=== PATIENT | male | born 1945 | race Caucasian/White ===

== ENCOUNTER 2017-08-17 06:24 | Day surgery (SDC) | payer MEDICARE, MEDICAID ==
[~2017-08-17] VITALS: Ht 180.3 cm; Wt 84.1 kg
[~2017-08-17 06:24] MED LIST: ASPI-1182 PO; ATOR20TA86 PO; DULA0.75 SQ; GLIP10 PO; INSLAN SQ; LISI-661 PO; METF850T2 PO
[2017-08-17] MEDS ORDERED: ALBUTEROL SULFATE 2.5 MG/0.5 ML NEB SOLUTION NEB ONE (06:25)
[2017-08-17] MEDS ORDERED: LIDOCAINE HCL 4% 50 ML SOLUTION TP ONE (06:25)
[2017-08-17] MEDS ORDERED: LIDOCAINE HCL 2% 5 ML JELLY TP ONE (06:25)
[2017-08-17] MEDS ORDERED: BENZOCAINE 20% 50 MCG/SPRAY 57 GM TP ONE (06:25)
[2017-08-17] MEDS ORDERED: SODIUM CHLORIDE 0.9% 1,000 ML IV ONE ×2 (06:37→07:00)
[2017-08-17 07:08] LABS: GLUCOMETER DEV NAME(LOC) SDS 5; GLUCOSE,POINT OF CARE 112 MG/DL (70-110)
[2017-08-17] MEDS ORDERED: INSU100V SQ (07:11)
[2017-08-17] MEDS ORDERED: MIDAZOLAM HCL 2 MG/2 ML VIAL ONE (07:32)
[2017-08-17] MEDS ORDERED: FentaNYL CITRATE-PF 100 MCG/2 ML VIAL ONE (07:33)
[2017-08-17] MEDS ORDERED: MethylPREDNISolone SOD SUCC 125 MG/2 ML VIAL IVP ONE (08:45)
[2017-08-17] MEDS ORDERED: MethylPREDNISolone SOD SUCC 125 MG/2 ML VIAL ONE (09:28)
[2017-08-17] MEDS ORDERED: OXYGEN THERAPY IH SCH (20:00)
== END 2017-08-17 10:20 | disposition home or self-care (01) ==
LOC: SURGERY 06:24
PROVIDERS: ATTEND Internal Medicine Critical Care Medicine
DX: J38.4 Edema of larynx (principal); B37.0 Candidal stomatitis; J43.9 Emphysema, unspecified; E11.9 Type 2 diabetes mellitus without complications; E78.00 Pure hypercholesterolemia, unspecified; F17.210 Nicotine dependence, cigarettes, uncomplicated; Z79.84 Long term (current) use of oral hypoglycemic drugs; Z79.4 Long term (current) use of insulin; Z98.42 Cataract extraction status, left eye; Z79.82 Long term (current) use of aspirin
CPT/HCPCS: 31623; 31624; 71045; 82962; 87015; 87070; 87205; 87220; 88108; 88312; 93005; J2250; J2930; J3010; J7030